=== PATIENT | female | born 1980 | race Caucasian/White ===

== ENCOUNTER 2024-04-10 14:17 | Day surgery (SDC) | payer BC, SELFPAY ==
[2024-04-10] VITALS (17 sets, daily range): BP systolic 98–135; BP diastolic 60–95; BMI 25.9
[2024-04-10] MEDS: ZOFRAN 4 MG IV (09:56)
[2024-04-10] MEDS: DILAUDID 0.5 MG IV ×5 (09:56→22:59)
[2024-04-10] MEDS: NSS 1000 IV (09:57)
--- NOTE | 2024-04-10 10:00 | ED.GENMED ---
History of Present Illness
<Fabby Russell PA-C - Last Filed: 04/10/24 17:16>
General
Chief Complaint: Abdominal Pain
Source: patient
Exam Limitations: none
Time Seen by Provider: 04/10/24 09:34
Nursing documentation reviewed up to this point in time: agreed with
History of Present Illness
History of Present Illness:
44-year-old female with history diverticulitis presents to the emergency department for evaluation of abdominal pain. Patient states that yesterday around 10 PM she noticed upper abdominal pain which was mild. Throughout the night patient's pain
became more severe and woke her up from her sleep. This morning pain has been constant in the upper abdomen with radiation down to her left lower abdomen and right lower abdomen. Pain does radiate around to mid back. Pain has been associated with
nausea, although she denies any vomiting. Patient denies any fevers, chills, diarrhea, constipation, or urinary symptoms. No hematochezia or melena. Patient denies any chest pain or shortness of breath.
Patient denies any alcohol use.
Patient has a history of a tubal ligation, otherwise no history of abdominal surgeries.
Past History
<Fabby Russell PA-C - Last Filed: 04/10/24 17:16>
Past History
ED Past Medical History: Other (Deviated septum,)
ED Past Surgical History: Gynecological (Tubel)
Social History
Tobacco: Smoker
Alcohol: None
Personal: Single
Living: with family
Review of Systems
<Fabby Russell PA-C - Last Filed: 04/10/24 17:16>
Review of Systems
Allergies reviewed?: Yes
All Other Systems: ROS reviewed and negative except as documented in HPI and ROS
Phy Exam
<Fabby Russell PA-C - Last Filed: 04/10/24 17:16>
Physical Exam
Physical Exam:
Vitals: Tachycardic on arrival, otherwise vital signs are stable. Afebrile
General: Patient is moderately uncomfortable due to pain. Nontoxic-appearing
Skin: Warm and dry, no rashes or lesions
Head: Normocephalic, atraumatic
Eyes: Sclera nonicteric. EOMs intact. No nystagmus.
Throat: Protecting airway
Neck: Normal ROM, no cervical spine tenderness, no meningismus
Cardiac: Regular rate and rhythm, no murmurs.
Pulm: Normal respiratory effort, no wheezes, rales, rhonchi heard on exam.
Abdomen: Abdomen soft. Moderate abdominal tenderness most severe in left mid abdomen without rebound tenderness or guarding. No tenderness McBurney's point. Negative Evans sign. No CVA tenderness
Extremities: No evidence of cyanosis or edema. Great distal pulses
Neuro: AAOx3. CN II-XII intact. No focal neurologic deficits.
Psychiatric: Normal affect.
Course
<Fabby Russell PA-C - Last Filed: 04/10/24 17:16>
Orders/Labs/Results
Orders:
Orders
04/10/24 09:25
Electrocardiogram (*1) Urgent
Reason for Study: Abdominal Pain
EKG- Treatment ONCE
04/10/24 09:46
Complete Blood Count/With Diff Urgent
Comprehensive Metabolic Panel Urgent
HCG, Serum Qualitative Screen Urgent
Comment: ADD ON
Lipase Urgent
04/10/24 09:47
Add On- LAB Urgent
Tests Added?: serum hcg, qualitative
04/10/24 09:48
0.9% Sodium Chloride 1000 ml [Nss] 1,000 ml IV BOLUS
HYDROmorphone [Dilaudid] 0.5 mg IV NOW STA
Ondansetron Injectable [Zofran] 4 mg IV NOW STA
04/10/24 09:49
CT Abd/Pel (IV only)-DH only Urgent
Comment:
Reason For Exam: diffuse severe abdominal pain, +nausea
04/10/24 10:47
Urinalysis Reflex To Culture Urgent
Date Specimen was Collected: 04/10/24
Time Specimen was Collected: 09:54
04/10/24 12:05
Ketorolac [Toradol] 15 mg IV NOW STA
US Abdomen Complete/Upper Urgent
Comment: gallstones noted on CT
Reason For Exam: upper abominal pain
04/10/24 13:03
HYDROmorphone [Dilaudid] 0.5 mg IV NOW STA
04/10/24 13:19
Consult Surgery [SURGICAL CONSULT] Urgent
Consulting Provider: Arsalan Powers
Was physician already notified: Yes
04/10/24 13:47
Ciprofloxacin 400 mg/[id number] [Cipro 400 mg] 200 ml IV NOW
MetroNIDAZOLE 500 MG/100 ML [Flagyl 500 mg] 100 ml IV ONCE
04/10/24 13:50
Bupivacaine 0.25%Pf/Epinephrin [Sensorcaine-Epi 0.25%-0.0005] 30 ml .ROUTE .STK-MED ONE
Iohexol [Omnipaque] 50 ml .ROUTE .STK-MED ONE
04/10/24 14:04
Dexamethasone Sod Phosphate [Decadron] 20 mg .ROUTE .STK-MED ONE
Fentanyl Citrate/Pf [Sublimaze] 100 mcg .ROUTE .STK-MED ONE
Glycopyrrolate [Robinul] 0.2 mg .ROUTE .STK-MED ONE
Lidocaine 2% Mpf [Xylocaine Mpf 2%] 100 mg .ROUTE .STK-MED ONE
Midazolam HCl [Versed] 2 mg .ROUTE .STK-MED ONE
Neostigmine [Prostigmin] 3 mg .ROUTE .STK-MED ONE
Ondansetron Injectable [Zofran] 4 mg .ROUTE .STK-MED ONE
Propofol [Diprivan] 40 ml .ROUTE .STK-MED
Rocuronium [place] [Rocuronium] 50 mg .ROUTE .STK-MED ONE
04/10/24 14:28
Fentanyl Citrate/Pf [Sublimaze] 25 mcg IV PACU-Q5MPRN PRN
Fentanyl Citrate/Pf [Sublimaze] 50 mcg IV PACU-Q5MPRN PRN
Meperidine [Demerol] 12.5 mg IV PACU-Q5MPRN PRN
Ondansetron Injectable [Zofran] 4 mg IV PACU-ONCEPRN PRN
Prochlorperazine [Compazine] 5 mg IV PACU-ONCEPRN PRN
Notify MD As Directed
Notify physician if: for SDS patients with known or suspected sleep obstructive sleep apnea, monitor in the
PACU.
Notify MD for any apneic/desaturation episodes
O2 Therapy [RESP] Urgent
Titrate/Wean O2 to maintain O2 sat greater than (%): 92
Special Instructions: -Provide supplemental oxygen to achieve O2 sat of 92% or greater.
-After 15 min, may wean O2 and discontinue if patient is able to maintain O2 sat of 92%
or greater during recovery period.
If patient is a discharge home, without oxygen therapy, notify anestheiologist if
unable to maintain O2 SAT of 92% or greater on room air for MD clearance.
04/10/24 14:30
Normosol (Mult Electrolytes) [Normosol-R] 1,000 ml IV PER PROTOCOL
04/10/24 Dinner
Low Fat
At Your Request: Limited Participation
04/10/24 15:16
HYDROmorphone [Dilaudid] 1 mg .ROUTE .STK-MED ONE
04/10/24 15:18
Ondansetron Injectable [Zofran] 4 mg .ROUTE .STK-MED ONE
Sugammadex Sodium [Bridion] 200 mg .ROUTE .STK-MED ONE
04/10/24 15:24
OR Pathology Routine
Clinical History: acute cholecystitis
Pre-Operative Diagnosis: acute cholecystitis
Post-Operative Diagnosis: acute cholecystitis
Operative Procedure: laproscopic cholecystectomy
Surgeon: riley
Circulating Nurse: kassi
Specimen Type: gallbladder
04/10/24 15:40
Code Status As Directed
Resuscitation Status: Full Code
HYDROmorphone [Dilaudid] 0.5 mg IV Q2HPRN PRN
Ketorolac [Toradol] 10 mg IV Q6HPRN PRN
Ondansetron Injectable [Zofran] 4 mg IV Q6HPRN PRN
Oxycodone [Roxicodone] 5 mg PO Q4HPRN PRN
04/10/24 15:41
Admit Patient As Directed
Co-Sign Provider:
Level of Care: Post Proc/Surg Recovery
Assign to:: Medical/Surgical
Physician / Group: Priya / GARETH
Diagnosis: Acute cholecystitis
Reason for Overnight Stay: Standard of Care
Activity As Directed
Activity Level: Ambulate
Intake/ Output As Directed
Frequency: Per unit guidelines
Pneumatic Compression Sleeves As Directed
Type: Knee high
Vital Signs As Directed
Frequency: Per unit guidelines
PRN Pain Medication Management As Directed
May give lesser potent ordered pain med per pt: Yes
preference::
Protocol:: Medication orders for pain may be administered in a
manner that supports deferring to patient preference
when the pt is:
- Requesting an ordered lesser potent pain medication.
Least to most potent pain medications are defined
as: acetaminophen < NSAID < tramadol < opioids
(morphine, oxycodone, hydromorphone).
- Requesting a lesser dose of the same medication IF
ORDERED.
- Requesting a less intrusive route of administration
if both routes are prescribed by the provider (PO <
IV).
Rx Incentive Spirometry [RESP] Routine
Frequency: q1h while awake
# of times per hour: 10
DX Deep Vein Thrombosis Video Routine
04/10/24 15:45
Normosol (Mult Electrolytes) [Normosol-R] 1,000 ml IV 100 mls/hr
04/10/24 16:00
Acetaminophen [Tylenol] 650 mg PO Q4HWA
04/10/24 16:07
RF Fluoroscopy, C-arm Routine
RF Operative Cholangiogram Routine
04/11/24 18:00
Enoxaparin Sodium [Lovenox] 40 mg SC QPM
Abnormal Lab Results
04/10/24
09:46
WBC 10.9 H 10^3/uL
(4.8-10.8)
Absolute Neuts (auto) 7.9 H 10^3/uL
(1.4-6.5)
Lymphocytes % 20.4 L %
(20.5-51.1)
Glucose 110 H mg/dl
(70-99)
04/10/24 09:46
04/10/24 09:46
Vital Signs
Pulse: 88
Initial and Last Documented VS:
Initial Vital Signs
Temp Pulse Resp BP Pulse Ox
98.1 F 124 20 135/93 96
04/10/24 09:22 04/10/24 09:22 04/10/24 09:22 04/10/24 09:22 04/10/24 09:22
Last Documented Vital Signs
Temp Pulse Resp BP Pulse Ox
97.5 F 81 16 114/76 92
04/10/24 16:59 04/10/24 16:59 04/10/24 16:59 04/10/24 16:59 04/10/24 16:59
<Jovanny Smith MD - Last Filed: 08/20/24 14:25>
Orders/Labs/Results
Orders:
Orders
04/10/24 09:25
Electrocardiogram (*1) Urgent
Reason for Study: Abdominal Pain
EKG- Treatment ONCE
04/10/24 09:46
Complete Blood Count/With Diff Urgent
Comprehensive Metabolic Panel Urgent
HCG, Serum Qualitative Screen Urgent
Comment: ADD ON
Lipase Urgent
04/10/24 09:47
Add On- LAB Urgent
Tests Added?: serum hcg, qualitative
04/10/24 09:48
0.9% Sodium Chloride 1000 ml [Nss] 1,000 ml IV BOLUS
HYDROmorphone [Dilaudid] 0.5 mg IV NOW STA
Ondansetron Injectable [Zofran] 4 mg IV NOW STA
04/10/24 09:49
CT Abd/Pel (IV only)-DH only Urgent
Comment:
Reason For Exam: diffuse severe abdominal pain, +nausea
04/10/24 10:47
Urinalysis Reflex To Culture Urgent
Date Specimen was Collected: 04/10/24
Time Specimen was Collected: 09:54
04/10/24 12:05
Ketorolac [Toradol] 15 mg IV NOW STA
US Abdomen Complete/Upper Urgent
Comment: gallstones noted on CT
Reason For Exam: upper abominal pain
04/10/24 13:03
HYDROmorphone [Dilaudid] 0.5 mg IV NOW STA
04/10/24 13:19
Consult Surgery [SURGICAL CONSULT] Urgent
Consulting Provider: Arsalan Powers
Was physician already notified: Yes
04/10/24 13:47
Ciprofloxacin 400 mg/[id number] [Cipro 400 mg] 200 ml IV NOW
MetroNIDAZOLE 500 MG/100 ML [Flagyl 500 mg] 100 ml IV ONCE
04/10/24 13:50
Bupivacaine 0.25%Pf/Epinephrin [Sensorcaine-Epi 0.25%-0.0005] 30 ml .ROUTE .STK-MED ONE
Iohexol [Omnipaque] 50 ml .ROUTE .STK-MED ONE
04/10/24 14:04
Dexamethasone Sod Phosphate [Decadron] 20 mg .ROUTE .STK-MED ONE
Fentanyl Citrate/Pf [Sublimaze] 100 mcg .ROUTE .STK-MED ONE
Glycopyrrolate [Robinul] 0.2 mg .ROUTE .STK-MED ONE
Lidocaine 2% Mpf [Xylocaine Mpf 2%] 100 mg .ROUTE .STK-MED ONE
Midazolam HCl [Versed] 2 mg .ROUTE .STK-MED ONE
Neostigmine [Prostigmin] 3 mg .ROUTE .STK-MED ONE
Ondansetron Injectable [Zofran] 4 mg .ROUTE .STK-MED ONE
Propofol [Diprivan] 40 ml .ROUTE .STK-MED
Rocuronium [place] [Rocuronium] 50 mg .ROUTE .STK-MED ONE
04/10/24 14:28
Fentanyl Citrate/Pf [Sublimaze] 25 mcg IV PACU-Q5MPRN PRN
Fentanyl Citrate/Pf [Sublimaze] 50 mcg IV PACU-Q5MPRN PRN
Meperidine [Demerol] 12.5 mg IV PACU-Q5MPRN PRN
Ondansetron Injectable [Zofran] 4 mg IV PACU-ONCEPRN PRN
Prochlorperazine [Compazine] 5 mg IV PACU-ONCEPRN PRN
Notify MD As Directed
Notify physician if: for SDS patients with known or suspected sleep obstructive sleep apnea, monitor in the
PACU.
Notify MD for any apneic/desaturation episodes
O2 Therapy [RESP] Urgent
Titrate/Wean O2 to maintain O2 sat greater than (%): 92
Special Instructions: -Provide supplemental oxygen to achieve O2 sat of 92% or greater.
-After 15 min, may wean O2 and discontinue if patient is able to maintain O2 sat of 92%
or greater during recovery period.
If patient is a discharge home, without oxygen therapy, notify anestheiologist if
unable to maintain O2 SAT of 92% or greater on room air for MD clearance.
04/10/24 14:30
Normosol (Mult Electrolytes) [Normosol-R] 1,000 ml IV PER PROTOCOL
04/10/24 Dinner
Low Fat
At Your Request: Limited Participation
04/10/24 15:16
HYDROmorphone [Dilaudid] 1 mg .ROUTE .STK-MED ONE
04/10/24 15:18
Ondansetron Injectable [Zofran] 4 mg .ROUTE .STK-MED ONE
Sugammadex Sodium [Bridion] 200 mg .ROUTE .STK-MED ONE
04/10/24 15:24
OR Pathology Routine
Clinical History: acute cholecystitis
Pre-Operative Diagnosis: acute cholecystitis
Post-Operative Diagnosis: acute cholecystitis
Operative Procedure: laproscopic cholecystectomy
Surgeon: riley
Circulating Nurse: kassi
Specimen Type: gallbladder
04/10/24 15:40
Code Status As Directed
Resuscitation Status: Full Code
HYDROmorphone [Dilaudid] 0.5 mg IV Q2HPRN PRN
Ketorolac [Toradol] 10 mg IV Q6HPRN PRN
Ondansetron Injectable [Zofran] 4 mg IV Q6HPRN PRN
Oxycodone [Roxicodone] 5 mg PO Q4HPRN PRN
04/10/24 15:41
Admit Patient As Directed
Co-Sign Provider:
Level of Care: Post Proc/Surg Recovery
Assign to:: Medical/Surgical
Physician / Group: Priya / GARETH
Diagnosis: Acute cholecystitis
Reason for Overnight Stay: Standard of Care
Activity As Directed
Activity Level: Ambulate
Intake/ Output As Directed
Frequency: Per unit guidelines
Pneumatic Compression Sleeves As Directed
Type: Knee high
Vital Signs As Directed
Frequency: Per unit guidelines
PRN Pain Medication Management As Directed
May give lesser potent ordered pain med per pt: Yes
preference::
Protocol:: Medication orders for pain may be administered in a
manner that supports deferring to patient preference
when the pt is:
- Requesting an ordered lesser potent pain medication.
Least to most potent pain medications are defined
as: acetaminophen < NSAID < tramadol < opioids
(morphine, oxycodone, hydromorphone).
- Requesting a lesser dose of the same medication IF
ORDERED.
- Requesting a less intrusive route of administration
if both routes are prescribed by the provider (PO <
IV).
Rx Incentive Spirometry [RESP] Routine
Frequency: q1h while awake
# of times per hour: 10
DX Deep Vein Thrombosis Video Routine
04/10/24 15:45
Normosol (Mult Electrolytes) [Normosol-R] 1,000 ml IV 100 mls/hr
04/10/24 16:00
Acetaminophen [Tylenol] 650 mg PO Q4HWA
04/10/24 16:07
RF Fluoroscopy, C-arm Routine
RF Operative Cholangiogram Routine
04/11/24 18:00
Enoxaparin Sodium [Lovenox] 40 mg SC QPM
Abnormal Lab Results
04/10/24
09:46
WBC 10.9 H 10^3/uL
(4.8-10.8)
Absolute Neuts (auto) 7.9 H 10^3/uL
(1.4-6.5)
Lymphocytes % 20.4 L %
(20.5-51.1)
Glucose 110 H mg/dl
(70-99)
04/10/24 09:46
04/10/24 09:46
Vital Signs
Initial and Last Documented VS:
Initial Vital Signs
Temp Pulse Resp BP Pulse Ox
98.1 F 124 20 135/93 96
04/10/24 09:22 04/10/24 09:22 04/10/24 09:22 04/10/24 09:22 04/10/24 09:22
Last Documented Vital Signs
Temp Pulse Resp BP Pulse Ox
97.5 F 81 16 114/76 92
04/10/24 16:59 04/10/24 16:59 04/10/24 16:59 04/10/24 16:59 04/10/24 16:59
<Fabby Russell PA-C - Last Filed: 04/10/24 17:16>
MDM/Problems Addressed
Differential Diagnosis Includes:
Not limited to: Diverticulitis, enteritis, duodenal ulcer, biliary colic, cholecystitis, appendicitis, renal colic, UTI, pyelonephritis
MDM/Problems Addressed:
44-year-old female with history diverticulitis presenting with constant upper abdominal pain with associated nausea since last night. No fevers, chills, or vomiting. Patient tachycardic on arrival, otherwise vital signs stable. She is afebrile.
Physical exam as above. Patient moderately uncomfortable due to pain. Will give fluids, Zofran, Dilaudid and reassess.
Patient much more comfortable following Dilaudid. Abdomen is soft with somewhat diffuse abdominal tenderness most severe in left mid abdomen. Negative Evans sign. No CVA tenderness. Patient is perfusing well. Will obtain labs, urine, CT scan.
Labs reviewed. No clinically significant abnormalities. Lipase is normal. Urine shows no signs of infection or blood. CT shows evidence of gallstones. Given patient's persistent symptoms�will obtain abdominal ultrasound for better evaluation.
Abdominal ultrasound shows multiple stones within the gallbladder without any evidence of acute cholecystitis. Although patient is afebrile without leukocytosis or evidence of cholecystitis on imaging�patient's pain has been persistent and required
multiple rounds of IV Dilaudid. Discussed with general surgeon, Dr. Powers who was down to see patient at bedside. Patient will be taken to the OR for cholecystectomy. Patient stable upon transfer to OR. Patient seen with attending physician.
Chronic conditions affecting care:
History of diverticulitis
Acute Exacerbation and/or Progression of Chronic Illness:
Acute cholecystitis
<Fabby Russell PA-C - Last Filed: 04/10/24 17:16>
*Radiology
Radiology exam reviewed: preliminary read by ED provider (Gallstones visualized on both abdominal CT and abdominal ultrasound) and radiology read reviewed
*Pulse Oximetry
Patient hypoxic: no
*EKG
Interpreted by ED Provider?: Yes
EKG Intrepretation Date: 04/10/24
Interpretation: abnormal
Comparison EKG: changes noted
Heart Rate: 107
Rate: tachycardiac
Rhythm: sinus
[place]: normal axis
Interval: normal interval
QRS Pattern: low voltage
Ischemia: non-specific ST changes
*Automatic Quilling Machine Operator Interpretation
Rate: normal
Interpretation: normal
Heart Rate: 88
Rhythm: sinus
*Critical Care Note
Total Time (30-74mins, 75-104mins- exclusive of procedures): Not Applicable
<Fabby Russell PA-C - Last Filed: 04/10/24 17:16>
Patient Management
Discussion with other providers: Pelletizer (Dr. Powers, general surgeon)
Escalation/DeEscalation of care consider admission/obs:
Admit�patient taken to the OR for cholecystectomy with general surgery
ED Attending Note
<Fabby Russell PA-C - Last Filed: 04/10/24 17:16>
-
Portions of this chart may have been created with voice recognition software.� Occasional wrong word or��sound alike� substitutions may have occurred due to the inherent limitations of voice recognition software.
<Jovanny Smith MD - Last Filed: 04/10/24 14:25>
ED Attending Note
Patient seen and examined by attending physician: Yes
ED Attending Note:
Patient without any significant past medical history, presents to ED secondary to sudden onset of upper abdominal pain rating to the back since last night. Abdominal pain described as sharp, radiation to the back, with nausea sensation without
vomiting. Denies alleviating or exacerbate factors. Denies previous history of similar symptoms. Denies trauma. Denies recent illness. Denies recent change in diet.
Physical Exam
General: mild painful distress, not acutely ill. afebrile.
Head: nc/at. eomi
Neck: supple. no meningeal signs.
Heart: s1/s2 regular rate and rhythm, no murmur. equal radial pulses.
Lungs: no acute respiratory distress. clear bilaterally.
Abdomen: normal bowel sounds. mild RUQ tenderness to palpation
Neuro: alert and oriented. no focal neurological deficits
Skin: no rash
Psychiatric: well kept. interactive and cooperative
Extremities: no edema. no calf tenderness.
History and exam consistent with biliary colic. Unfortunately, patient requiring multiple pain medications for symptomatic control. As such, will consult surgery for evaluation.
Pt evaluated in ED by (surgery) - will proceed to OR
Discharge Plan
Departure
Patient Disposition: OR
Presentation/result/management discussed w/ accepting MD/DO: Dr. Powers
Discharge Problem:
Acute cholecystitis
Interventions
Interventions:
*Risk Screen - Suicide Last Done: 04/10/24 09:50
*General Assessment Last Done: 04/10/24 09:50
*Neglect/Abuse Screening Last Done: 04/10/24 09:50
ED- Fall Risk Assessment Last Done: 04/10/24 09:50
*ED COVID-19 Vaccine History Last Done: 04/10/24 09:50
*Nursing Disposition Last Done: 04/10/24 13:49
AM-Glzuuu-Sxmyucgymy Assessment Last Done: 04/10/24 09:50
Discharge Date and Time
Discharge Date/Time: 04/10/24 13:50
[2024-04-10 10:08] LABS: % Basophils 0.5 % (0-2); % Eosinophils 1.3 % (0-6); % Immature Granulocytes 0.2 % (0-0.5); % Lymphocytes 20.4 % (20.5-51.1); % Monocytes 4.9 % (1.7-9.3); % Neutrophils 72.7 % (42.2-75.2); Absolute Basophils 0.1 10^3/uL (0-0.2); Absolute Eosinophils 0.1 10^3/uL (0-0.7); Absolute Lymphocytes 2.2 10^3/uL (1.2-3.4); Absolute Monocytes 0.5 10^3/uL (0.1-0.6); Absolute Neutrophils 7.9 10^3/uL (1.4-6.5); Hematocrit 43.3 % (37.0-47.0); Hemoglobin 15.2 g/dL (12.0-16.0); Mean Corp Hgb Conc. 35.1 g/dL (33.0-37.0); Mean Corpuscular Volume 88.4 fL (81.0-99.0); Mean Platelet Volume 9.4 fL (7.4-10.4); Nucleated Red Blood Cells % 0 %; Platelet Count 306 10^3/uL (130-400); White Blood Cell Count 10.9 10^3/uL (4.8-10.8)
[2024-04-10 10:25] LABS: ALT (SGPT) 13 U/L (0-35); AST (SGOT) 20 U/L (14-36); Albumin 4.6 g/dl (3.5-5.0); Alkaline Phosphatase 57 U/L (38-126); Blood Urea Nitrogen 9 mg/dl (7-17); Calcium 9.8 mg/dl (8.4-10.2); Carbon Dioxide 23 mmol/L (22-30); Chloride 106 mmol/L (98-107); Estimated Creatinine Clearance 76 ml/min; Glucose 110 mg/dl (70-99); Lipase 159 U/L (23-300); Potassium 4.4 mmol/L (3.5-5.1); Sodium 140 mmol/L (135-145); Total Bilirubin 0.3 mg/dl (0.2-1.3); eGFR > 60.00
[2024-04-10 10:26] LABS: HCG, Serum Qualitative Screen Negative
--- NOTE | 2024-04-10 10:48 | EDRN ---
the pt pressed the call rice and this RN entered the pts room, the pt stated to this RN that she needed to urinate, the pt was able to ambulate to the bathroom and back to the stretcher with no issues, the pt was able to provide a urine sample that
was sent to the lab, the pt is now resting in stretcher in the lowest position, side rails up x1, HOB elevated, VS WNL, will continue to monitor the pt closely
[2024-04-10 10:58] LABS: Urine Albumin Negative (Neg - Trace); Urine Bilirubin Negative (Negative); Urine Character Clear (Clear); Urine Color Yellow; Urine Glucose Negative (Negative); Urine Ketone Negative (Negative); Urine Leukocyte Negative (Negative); Urine Nitrite Negative (Negative); Urine Occult Blood Negative (Negative); Urine Specific Gravity 1.005 (<1.030); Urine Urobilinogen Negative (Neg - 1+)
[2024-04-10] MEDS: TORADOL 15 MG IV (12:17)
--- NOTE | 2024-04-10 13:46 | CON.GS ---
Medical History
-
Chief Complaint: Abdominal pain
History of Present Illness:
Patient is a 44 yo F with a PMH of active tobacco use, diverticulitis, hemorrhoids, and s/p tubal ligation who presents with 24 hours of upper abdominal pain. Ms. Langley states that her symptoms began yesterday evening after a bowl of pasta. Her
pain persisted and eventually woke her from sleep prompting presentation to the ED. Currently she has continued severe epigastric and RUQ abdominal pain. She states that her pain radiates to her back and RIGHT shoulder. Associated nausea, but no
vomiting. No fevers or chills. She denies any jaundice, pale stools, or tea colored urine. She is not clear on prior attacks, though upon further prompting, she does admit to some more mild discomfort. Family history notable for
postcholecystectomy.
Past Medical History
Past Medical History: Other (Diverticulitis)
Past Surgical History: Gynecological (Tubal ligation)
Social History
Tobacco: Smoker (1 PPD)
Alcohol: None
Drug: None
Personal:
Living: With Family
Family History
Family History: Other (Family history notable postcholecystectomy)
Allergies / Home Medications
Allergy/AdvReac Type Severity Reaction Status Date / Time
Cephalosporins Allergy hives rash Verified 04/10/24 09:22
swollen
hands and
feet
shorness
of breath
penicillin V Allergy hives, Verified 04/10/24 09:22
rash
,shortness
of breath,
swelling
of hands
and feet
Penicillins Allergy hives, Verified 04/10/24 09:22
rash,
shortness
of breath,
swelling
of hands
and feet
adhesive tape Allergy sensitive Uncoded 04/10/24 09:22
skin
seasonal Allergy sneezing Uncoded 04/10/24 09:22
and ithy
eyes
Review of Systems
-
A 10 point review of systems was completed, and was negative except as per HPI.
Physical Exam
Vital Signs
Temp Pulse Resp BP Pulse Ox
98.5 F 79 16 119/80 93
04/10/24 12:21 04/10/24 13:24 04/10/24 13:24 04/10/24 13:24 04/10/24 13:24
04/09/24 04/10/24 04/11/24
06:59 06:59 06:59
Actual Weight 74.843 kg
Body Mass Index (BMI) 25.9
Lab Results
04/10/24 09:46
04/10/24 09:46
WBC 10.9 10^3/uL (4.8-10.8) H 04/10/24 09:46
Hgb 15.2 g/dL (12.0-16.0) 04/10/24 09:46
Hct 43.3 % (37.0-47.0) 04/10/24 09:46
Plt Count 306 10^3/uL (130-400) 04/10/24 09:46
Abs Immat Gran (auto) 0.0 10^3/uL (0-0.05) 04/10/24 09:46
Neutrophils % 72.7 % (42.2-75.2) 04/10/24 09:46
Physical Exam
General: Well Developed, Well Nourished and Pain
HEENT: Normocephalic and Anicteric
Respiratory: Non Labored Respirations
Cardiac: Regular Rhythm
GI: Soft, Non Distended, Tender (Epigastrium and RUQ, positive Evans sign) and Other (Nonperitoneal)
Musculoskeletal: No Edema
Skin: Warm and Dry
Neuro: Nonfocal/Grossly Intact
Data Reviewed
-
CT Scan: Image Personally Visualized and interpreted and Report Reviewed by me
Ultrasound: Image Personally Visualized and interpreted and Report Reviewed by me
Labs: Labs Reviewed by me
Assessment / Plan
-
Patient is a 44 yo F p/w acute cholecystitis
The natural history and pathophysiology of biliary and stone disease was discussed. Anatomy was reviewed. Workup thus far including labs and imaging was reviewed. Options for management including low-fat diet and antibiotic use versus
cholecystectomy were considered and discussed. Given her persistent pain recommend cholecystectomy.
Plan for laparoscopic cholecystectomy with possible cholangiogram. The procedure itself, as well as the risks, benefits, and alternatives was discussed. Specifically, we discussed the risks of bleeding, infection, injury to surrounding structures
(bowel, bile ducts), CBD injury, need for open procedure. Typical post procedure recovery including pain management and the 10 to 20% risk of fluctuations in GI function was discussed. All questions answered. Consent signed.
-- Laparoscopic cholecystectomy with possible IOC
-- NPO, IVF
-- Abx: Cipro and Flagyl
--- NOTE | 2024-04-10 13:48 | EDRN ---
the OR nurse Otilia RN called this RN for report, verbal report was given to the receiving OR nurse
--- NOTE | 2024-04-10 14:02 | W.SUR.PREOP ---
Pre-Operative Surgical Note
-
I have examined this patient prior to the performance of the scheduled procedure.
The patient's condition is unchanged from the time of the current History and
Physical and the patient is able to undergo the scheduled procedure.
--- NOTE | 2024-04-10 15:43 | W.IMMPOSTOP ---
Addendum entered and electronically signed by Arsalan Powers MD 04/10/24 16:15:
[facility]#[id number]
Original Note:
Surgical Immed Post Op Note
-
Primary Surgeon: Priya
Assisting Surgeon: SHEELA Jules
Pre-op Diagnosis: Acute cholecystitis
Post-op Diagnosis: Acute cholecystitis
Procedure Performed: Laparoscopic cholecystectomy with IOC
Anesthesia Type: General
Specimen / Cultures:
1. Gallbladder
Estimated Blood Loss: 3 cc
Complications: None
Operative Findings:
1. Acutely inflamed and edematous GB
2. Critical view of safety
3. IOC negative
[2024-04-10] MEDS: NORMOSOL-R 1000 IV (16:50)
[2024-04-10] MEDS: TYLENOL 650 MG PO ×3 (16:53→23:00)
--- NOTE | 2024-04-10 17:09 | PTCARENOTE ---
1645: Patient arrived to 2S. Full head to toe assessment completed. Lap sites open to air, clean dry and intact. IVF running per order. Patient wearing 2L NC with SpO2 greater than 92%. Call rice within reach and bed in lowest position.
--- NOTE | 2024-04-10 20:15 | PTCARENOTE ---
Resumed care of pt AAOx3. Pt ambulatory to bathroom independently, no voiding issues noted at this time. Pt with 5 abd lap sites open to air with surg glue, minor ecchymosis noted. Pt reports abd pain 01/29, See MAR for pain medication
administration. Right AC int infusing Normosol @100ml/hr as ordered. No issues to report at this time. Will continue to monitor.
[2024-04-11] MEDS: DILAUDID 0.5 MG IV (02:40)
[2024-04-11 03:09] VITALS: BP 99/65
[2024-04-11] MEDS: NORMOSOL-R 1000 IV (03:28)
--- NOTE | 2024-04-11 03:50 | DOWNTIME ---
There was a [employer] Client [employer] Supervisor Downtime on 04/11/2024 from 0100 to 04/11/2024 at 0252. Downtime documentation of patient's care, including medication administrations, has been reconciled in the electronic record per guidelines. Refer to the
patient's paper chart under the miscellaneous tab to see printed paper medication records and downtime forms.
[2024-04-11] MEDS: TYLENOL PO (05:20)
[2024-04-11 05:50] VITALS: BMI 25.9
[2024-04-11] MEDS: ROXICODONE 5 MG PO ×2 (05:52→09:52)
[2024-04-11 07:25] VITALS: BP 98/66
[2024-04-11] MEDS: TYLENOL 650 MG PO (07:25)
--- NOTE | 2024-04-11 08:58 | W.PN.GS2 ---
Today's Communication / Plan
-
-- DC today
Assessment / Plan
-
Patient is a 44 yo M POD#1 s/p laparoscopic cholecystectomy with IOC
Recovering well. No postoperative concerns.
-- LFD
-- Pain control: Tylenol, Toradol, oxycodone, IV Dilaudid as needed
-- HLIV
-- Antibiotics: None needed on discharge
-- DVT: Lovenox
-- DC today
Subjective Data
-
Date of Service: April 11, 2024
Reports abdominal soreness but improved with pain medication. No nausea or vomiting. No fevers. Minimal ambulation.
Objective Data
-
Intake and Output
04/10/24 04/11/24 04/12/24
06:59 06:59 06:59
Intake Total 2840 / 2840
Balance 2840 / 2840
Intake:
Oral fluids 1440 / 1440
IV fluids (Total) 1400 / 1400
Other:
Number of approximated SMALL 3
amounts of urine
Number of approximated LARGE 1
amounts of urine
Vital Signs
Temp Pulse Resp BP Pulse Ox
97.8 F 70 16 98/66 96
04/11/24 07:25 04/11/24 07:25 04/11/24 07:25 04/11/24 07:25 04/11/24 07:25
Lab Results
04/10/24 09:46
04/10/24 09:46
Calcium 9.8 mg/dl (8.4-10.2) 04/10/24 09:46
Total Bilirubin 0.3 mg/dl (0.2-1.3) 04/10/24 09:46
AST 20 U/L (14-36) 04/10/24 09:46
ALT 13 U/L (0-35) 04/10/24 09:46
Alkaline Phosphatase 57 U/L (38-126) 04/10/24 09:46
Total Protein 7.0 g/dl (6.3-8.2) 04/10/24 09:46
Albumin 4.6 g/dl (3.5-5.0) 04/10/24 09:46
Physical Exam
-
Gen: NAD
Abd: soft, tender to palpation, ND, non-peritoneal, incisions c/d/i - no erythema, ecchymosis or drainage
--- NOTE | 2024-04-11 09:05 | W.DS.TRANS ---
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
-
Discharge Instructions:
Discharge Diagnosis/Procedures Laparoscopic cholecystectomy with intraoperative
cholangiogram
Diet Regular
Activity No strenuous activity
Additional Activity No heavy lifting (>20 lbs) or strenuous
activities for 2 weeks postoperatively
Driving Restrictions No driving if too sore or taking narcotics
Bathing Restrictions OK to Shower
Wound Care Keep incisions clean and dry. Glue will flake
off in 2 to 3 weeks. Stitches will dissolve.
Use ice to the abdomen to reduce any bruising or
swelling.
Instructions:
Stand-Alone Forms:
Changes to Home Medications: Yes
Discharge Medications:
DC Medications w/original date entered in [employer]
acetaminophen 325 mg tablet 650 mg (2 x 325 mg) PO Q4HPRN PRN mild pain #1 tab 04/11/24
ibuprofen 200 mg tablet 400 - 600 mg (2 - 3 x 200 mg) PO Q6HPRN PRN moderate pain #1 tab 04/11/24
oxycodone 5 mg tablet 5 mg PO Q4HPRN PRN breakthrough/severe pain #10 tabs 04/11/24
Home Medication Changes
Pending Results: No
--- NOTE | 2024-04-11 14:18 | CM ---
CM reviewed chart, patient for OR for laparoscopic cholecystectomy, patient discharged before assessment completed. Per chart, patient PCP Ranjit Amaya, pharmacy [facility] in [place].
Plan; home no needs.
== END 2024-04-11 10:04 | disposition home or self-care (01) ==
LOC: PACU 14:17
PROVIDERS: Physician Assistant; ATTENDING PHYSICIAN Surgery; EMERGENCY PHYSICIAN Emergency Medicine; FAMILY PHYSICIAN Family Medicine
DX: K80.10 Calculus of gallbladder with chronic cholecystitis without obstruction (principal); K76.0 Fatty (change of) liver, not elsewhere classified
CPT/HCPCS: 47563; 88304; 74177; 74300; 76000; 76700; 80053; 81003; 83690; 84703; 85025; 88342; 93005; 96361; 96374; 96375; 96376; 99285; A4300; Q9967